=== PATIENT | male | born 1980 | race Hispanic/Latino ===

== ENCOUNTER 2019-07-09 15:34 | Emergency (ER) | payer SELFPAY ==
[~2019-07-09] VITALS: Ht 180.3 cm; Wt 129.3 kg
--- OUTSIDE RECORDS SUMMARY | 2019-07-09 15:37 | XMS REPORT ---
[facility] Address Unknown Phone Unavailable Care Team Providers Care Sole Splitter Name Role Phone Unavailable Unavailable Payers Payer Name Policy Type Policy Number Effective Date Expiration Date Problems This patient has no known problems. Allergies, Adverse Reactions, Alerts Allergy Name Allergy Type Status Severity Reaction(s) Onset Date Inactive Date Treating Clinician Comments No Known Allergies DA Active U 2019-01-16 00:00:00 No Known Allergies DA Active U 2018-07-14 00:00:00 No Known Allergies DA Active U 2018-01-09 00:00:00 Medications This patient has no known medications. Results Test Description Test Time Test Comments Text Results Atomic Results Result Comments - CT HEAD/BRAIN W/O CONT 2019-03-13 17:27:00 Name: OUSMANE BAILON [facility] Rebecca : 1980 Age/S: 38 / M [address] [place] Unit #: [id number] Loc: [place] [address] Phys: Richy Banuelos MD Acct: [id number] Dis Date: Status: REG ER PHONE #: [phone] Exam Date: 03/13/2019 1724 FAX #: Reason: weakness RUE EXAMS: CPT: [id number] CT HEAD/BRAIN W/O CONT 06[address] Dictation location: B2. CT HEAD WITHOUT CONTRAST. HISTORY: weakness RUE COMPARISON: No comparison is available. TECHNIQUE: Axial CT images of the head were obtained with coronal and/or sagittal reformatted views. Automated exposure control, iterative reconstruction technique, and/or adjustment of mA and/or kV according to patient's size was utilized for radiation dose reduction. IV CONTRAST: None. FINDINGS: No intracranial abnormalities such as hemorrhage, mass, mass effect, hydrocephalus, midline shift, extra-axial fluid collection or secondary signs of an acute infarct are noted. The calvarium and skull base are intact. The visualized paranasal sinus and mastoid air cells are clear. IMPRESSION: No evidence of acute intracranial abnormality. at 1727 Reported and signed by: Natalie Marquez M.D. CC: Richy Banuelos MD Technologist:Yu Garcia, RT(R)(MR) CTDI: DLP: Trnscb Date/Time: 03/13/2019 (1727) [email or web address] Orig Print D/T: S: 03/13/2019 (6033) PAGE 1 Signed Report D-DIMER 2019-03-13 17:04:00 D-DIMER (test code=DDIMER) 224 ng/mLFEU 215-500 BASIC METABOLIC [id number] 16:43:00* Test Item Value Reference Range Comments SODIUM (test code=NA) 143 mmol/L 134-147 POTASSIUM (test code=K) 3.3 mmol/L 3.4-5.0 CHLORIDE (test code=CL) 108 mmol/L 100-108 CARBON DIOXIDE (test code=CO2) 26 mmol/L 21-32 ANION GAP (test code=GAP) 9.0 GAP calc 4.0-15.0 GLUCOSE (test code=GLU) 113 MG/DL 70-110 BLOOD UREA NITROGEN (test code=BUN) 18 MG/DL 7-18 GLOMERULAR FILTRATION RATE (test code=GFR) >=60 max estimate estGFR >60 CREATININE (test code=CREAT) 1.2 MG/DL 0.8-1.3 CALCIUM (test code=CA) 9.7 MG/DL 8.5-10.1 [id number] 16:43:00* Test Item Value Reference Range Comments TROPONIN-I (test code=TROPI) < 0.015 NG/ML 0.000-0.045 Negative: </=0.045 Positive: >/=0.046 Correlation with serial results, other cardiac markers, and clinical findings is necessary to determine the clinical significance of this result. Quantitative results using different methodologies should not be compared to one another as numerical results may varyby method. Completed by Nursing: NODRUGS OF ABUSE SCREEN [id number] 16:21:00* Test Item Value Reference Range Comments URN COCAINE (test code=COCAURN) NEGATIVE SCcutoff <300 NG/ML URN CANNABINOIDS (test code=CANNABURN) NEGATIVE SCcutoff <50 NG/ML URN AMPHETAMINE (test code=AMPHETURN) NEGATIVE SCcutoff <1000 NG/ML URN BARBITURATE (test code=BARBITURN) NEGATIVE SCcutoff <200 NG/ML URN BENZODIAZEPINE (test code=BENZOURN) NEGATIVE SCcutoff <200 NG/ML URN OPIATES (test code=OPIATURN) NEGATIVE SCcutoff <2000 NG/ML URN PHENCYCLIDINE (PCP) (test code=PHENCURN) NEGATIVE SCcutoff <25 NG/ML URN METHADONE (test code=METHAURN) NEGATIVE SCcutoff <300 NG/ML [id number] 15:55:00* Test Item Value Reference Range Comments ALCOHOL (test code=ALC) 221 MG/DL 0-10 CREATINE KINASE (CK)2019-03-13 15:53:00* Test Item Value Reference Range Comments CREATINE KINASE (CK) (test code=CK) 424 Unit/L 26-192 - XR CHEST 1 [id number] 15:46:00 Name: OUSMANE BAILON [facility] : 1980 Age/S: 38 / M [address] Unit #: [id number] Loc: [place] [address] Phys: Richy Banuelos MD Acct: [id number] Dis Date: Status: REG ER PHONE #: [phone] Exam Date: 03/13/2019 0709 FAX #: Reason: chest pain EXAMS: CPT: [id number] XR CHEST 1 V 49665 Fluoro Time: DAP (Gy m2): Air Kerma (mGy): EXAM: Chest x-ray, 1 view Dictation location: B2 COMPARISON: None INDICATION: chest pain DISCUSSION: Suboptimal inspiration is noted. No consolidation or pleural effusion is seen. The cardiomediastinal silhouette is within normal limits. No acute bony abnormalities are identified. IMPRESSION: Suboptimal inspiration. No evidence of acute abnormality. at 6573 Reported and signed by: Pilo Edwards M.D. CC: Richy Banuelos MD PAGE 1 Signed Report Name: OUSMANE BAILON [facility] : 1980 Age/S: 38 / M [address] Unit #: [id number] Loc: [place] [address] Phys: Richy Banuelos MD Acct: [id number] Dis Date: Status: REG ER PHONE #: [phone] Exam Date: 03/13/2019 1549 FAX #: Reason: chest pain EXAMS: CPT: [id number] XR CHEST 1 V 54830 Fluoro Time: DAP (Gy m2): Air Kerma (mGy): <Continued> Technologist: Fan Bowling, RT(R)(CT)(MRI) Trnscb Tien e/Time: 03/13/2019 (6487) [id number] Orig Print D/T: S: (0624) PAGE 2 Signed Report CBC W/O [id number] 15:34:00* Test Item Value Reference Range Comments WHITE BLOOD CELL (test code=WBC) 6.6 K/mm3 3.5-11.0 RED BLOOD CELL (test code=RBC) 4.98 M/mm3 4.70-6.10 HEMOGLOBIN (test code=HGB) 14.4 G/DL 12.3-15.9 HEMATOCRIT (test code=HCT) 42.9 % 35.8-46.7 MEAN CELL VOLUME (test code=MCV) 86.1 Fl 86.3-98.9 MEAN CELL HGB (test code=MCH) 28.9 pg 28.9-34.4 MEAN CELL HGB CONCETRATION (test code=MCHC) 33.6 G/DL 32.1-34.5 RED CELL DISTRIBUTION WIDTH (test code=RDW) 14.2 SD 11.5-14.5 PLATELET COUNT (test code=PLT) 321.0 K/mm3 150-450 MEAN PLATELET VOLUME (test code=MPV) 9.00 fL 7.0-9.6 TROPONIN I [id number] 09:50:00* Test Item Value Reference Range Comments TROPONIN I RAPID (test code=TROPIRAP) 0.00 ng/mL <0.08 Please Note New Reference Range 0.00-0.079 ng/mL - Negative>or=0.08 ng/mL - Positive The use of serial sampling and testing protocol is arecommended practice.An elevated troponin level alone is often not sufficient fordiagnosis of myocardial infarction. Troponin results obtained by different assays may vary.Evaluation of the extent of myocardial damage based onincrease of troponin would be valid only if similarmethodology is used.
[2019-07-09] MEDS ORDERED: BACITRACIN ZINC 0.9GM TP ONE (16:30)
--- NOTE | 2019-07-09 17:28 | Diagnostic Imaging Report ---
EXAMINATION: ANKLE 3 + VIEWS RIGHT INDICATION: Trauma COMPARISON: None FINDINGS: No acute fracture or dislocation. Alignment is anatomic. Mild soft tissue swelling around the ankle. Corticated ossific fragments at the lateral and medial malleolus likely related to healed old injury. Degenerative changes of the midfoot. Small plantar calcaneal spur. IMPRESSION: Mild ankle soft tissue swelling with no underlying acute osseous injury. Scattered degenerative and old posttraumatic changes. Signed by: Andrés Olguin MD on 07/09/2019 5:25 PM
[2019-07-09] MEDS ORDERED: TRAMADOL HCL 50 MG TAB PO ONE (17:45)
== END 2019-07-09 18:31 | disposition home or self-care (01) ==
LOC: ER 15:34
DX: S93.491A Sprain of other ligament of right ankle, initial encounter (principal); X50.1XXA Overexertion from prolonged static or awkward postures, initial encounter; Y92.008 Other place in unspecified non-institutional (private) residence as the place of occurrence of the external cause; I10 Essential (primary) hypertension
CPT/HCPCS: 99284